=== PATIENT | male | born 1955 | race Caucasian/White ===

== ENCOUNTER → 2021-06-09 08:43 | Outpatient (CLI) | payer SELFPAY ==
[2013-12-02 15:54] VITALS: BMI 27.5
[2021-06-09 10:50] LABS: Anion Gap 9 (5-15); BUN 15 mg/dL (7-18); BUN/Creat Ratio 13.9 RATIO (10-20); Calcium,Total 9.3 mg/dL (8.5-10.1); Chloride 99 mmol/L (98-107); Cholesterol 221 mg/dL (200); Creatinine, Serum 1.08 mg/dL (0.70-1.30); EST Glomerular Filtration Rate 73 mL/min (>60); Est Glom Filt Rate - Afr Amer 89 mL/min (>60); Glucose 161 mg/dL (74-106); High Density Lipoprotein 48 mg/dL; PSA,Total - Annual Screen 0.85 ng/mL (0.00-4.00); Sodium Level 135 mmol/L (136-145); Triglycerides 71 mg/dL; Very Low Density Lipoprotein 14 mg/dL (5-40)
== END ==
PROVIDERS: PCP Family Medicine; Referring Provider Family Medicine; Visit Provider Family Medicine
DX: Z00.00 Encounter for general adult medical examination without abnormal findings (principal)
CPT/HCPCS: 36415; 80048; 80061; 84153; G0103

== ENCOUNTER 2024-10-19 03:09 | Emergency (ER) | payer SELFPAY ==
[2024-10-19] VITALS (10 sets, daily range): BP systolic 145–184; BP diastolic 83–100; PULSE 115–124; RESP 18–24; TEMP 36.7–37.2; O2SAT 91–98; BMI 26.5
--- NOTE | 2024-10-19 03:22 | ED.RN ---
Pt blood glucose checked by this RN, glucose monitor read high. Dr. Quesada made aware.
--- NOTE | 2024-10-19 03:50 | RAD_ITS ---
INDICATION: cough EXAMINATION/TECHNIQUE: X-RAY - XR Chest 1 View AP portable. 3:49 AM COMPARISON: Prior study dated: 12/05/2013 FINDINGS: LINES/DEVICES: None. LUNGS: No consolidation. No pneumothorax. MEDIASTINUM: Unremarkable. CARDIAC SILHOUETTE: Not enlarged. BONES AND SOFT TISSUES: No acute abnormalities. Right lower rib fracture appears nonacute. RAD/Chest 1 View (Portable) IMPRESSION: No evidence of active intrathoracic disease. Electronically Signed: Tiffanie Bruno MD at 5:10 EST ,
[2024-10-19 03:59] LABS: Hematocrit 37.1 % (40-54); Hemoglobin 13.1 g/dL (13.0-16.5); Mean Corp Hgb Conc 35.3 g/dL (32-36); Mean Corpuscular Hgb 30.3 pg (27.0-32.0); Mean Corpuscular Volume 85.9 fL (80-94); POSITIVE COUNT YES; POSITIVE DIFFERENTIAL YES; POSITIVE MORPHOLOGY YES; Platelet Count 206 K/mm3 (150-450); RBC Distribution Width CV 11.3 % (11.6-14.6); RBC Distribution Width SD 35.3 fl (35.1-43.9); Red Blood Count 4.32 M/mm3 (4.6-6.2); White Blood Count 19.2 K/mm3 (4.4-11.0)
--- NOTE | 2024-10-19 04:01 | EX.ED.DYSGE1 ---
HPI History of Present Illness Chief Complaint: General Illness Informant: patient and family Narrative Narrative: Patient is a 69-year-old male with history of hypertension and diabetes however states he does not take medications. He reports he has been feeling fatigued and weak for the last 3 days. Son states that he was talking to him this evening and he felt like his speech was slurred which concerned him and therefore he was brought in for evaluation. The patient states that despite not taking his medications he does watch his sugars and his normal value was approximately 140. He denies any fevers chills cough congestion abdominal pain nausea vomiting or diarrhea. He does state that his left chest wall hurts but feels this is related to physical activity he was doing a few days ago. PFSH PFSH Medical History no medical history Home Medications ?Medication ?Instructions ?Recorded ?Last Taken ?Type lisinopril 20 mg tablet 20 mg PO DAILY ##90 12/05/13 Unknown Rx metformin 500 mg tablet 500 mg PO BIDCM #90 tabs 12/05/13 Unknown Rx Allergy/AdvReac Type Severity Reaction Status Date / Time No Known Allergies Allergy Verified 10/19/24 03:10 Family History no significant family his Surgical History no surgical history Social History Smoking Status: Never smoker ROS ROS ED Constitutional Constitutional ED: Denies chills or fever(s) Eyes Eyes: Denies blurry vision or change in vision ENT ENT ED: Denies sore throat Cardiovascular Cardiovascular: Reports racing heartbeat; Denies chest pain or palpitations Respiratory/Chest Respiratory/Chest: Denies cough or dyspnea Gastrointestinal Gastrointestinal: Denies abdominal pain, diarrhea, nausea or vomiting Genitourinary Genitourinary ED: Denies dysuria or hematuria Musculoskeletal Musculoskeletal: Reports other Details: Positive left chest wall pain Integumentary Reports other Details: Positive redness left chest wall ; Denies rash Neurologic Neurologic: Denies headache(s) Hematologic/Lymphatic Hematologic/Lymphatic: Denies easy bleeding or easy bruising EXAM Physical Exam Const Vital Signs: 10/19/24 03:10 10/19/24 03:19 10/19/24 04:15 Temperature 98.3 F 98.3 F Temperature Source Oral Oral Pulse Rate 120 H 121 H Respiratory Rate 18 18 Respiratory Effort Normal Respiratory Pattern Normal Blood Pressure 145/83 H 145/83 H Blood Pressure Mean 103 103 Pulse Ox 97 95 Oxygen Delivery Method Room Air Room Air 10/19/24 04:19 10/19/24 05:00 10/19/24 05:09 Temperature 98.3 F 98.1 F Temperature Source Oral Oral Pulse Rate 118 H 120 H 117 H Respiratory Rate 20 H 22 H 18 Respiratory Effort Respiratory Pattern Blood Pressure 167/93 H 184/92 H 165/83 H Blood Pressure Mean 117 122 110 Pulse Ox 95 95 92 Oxygen Delivery Method Room Air Room Air Room Air 10/19/24 06:00 10/19/24 06:21 Temperature 98.3 F 98.2 F Temperature Source Oral Pulse Rate 117 H 115 H Respiratory Rate 18 21 H Respiratory Effort Respiratory Pattern Blood Pressure 184/92 H 151/86 H Blood Pressure Mean 122 107 Pulse Ox 95 98 Oxygen Delivery Method Room Air Positive well nourished and well developed General Appearance ED: well developed HEENT Reports dry mucous membranes HEENT Narrative: Mucous membranes are dry and tacky There are changes to the buccal mucosa and posterior pharynx consistent with thrush No airway edema or compromise Mouth ED: Yes dry mucous membranes Mouth: dry mucous membranes Eyes PERRL and EOMs intact bilaterally Neck supple Neck Narrative: No nuchal rigidity or meningeal signs Chest Wall Chest Narrative: Patient has soft tissue swelling with erythema faint warmth and fluctuance of the left anterior chest wall No lymphangitic streaking No crepitance palpated Resp normal respiratory effort and clear to auscultation bilaterally Cardio regular rhythm Rate: tachycardic GI normal to inspection, nondistended, normoactive bowel sounds, non-tender, non-distended and no masses Auscultation: normoactive bowel sounds Palpation: soft Extremity normal to inspection Neuro oriented x3, CN's II-XII intact bilaterally and no sensory deficits noted Neuro Narrative: GCS of 15 Cranial nerves II through XII are grossly intact there are no focal neurologic deficits No pronator drift no dysmetria no truncal ataxia NIH stroke scale score of 0 Sensorium / Orientation: alert Motor Exam: strength 5/5 throughout Psych mental status grossly normal Skin Skin Narrative: Skin turgor is increased Soft tissue changes to the left anterior chest as documented above MDM MDM MDM Narrative Medical decision making narrative: Patient presented to the ER tachycardic and hypertensive but otherwise afebrile. Some reported slurred speech but on exam he does not have any dysarthria and a stroke scale score is 0. However as he is a diabetic and states he does not take any medication and does have discoloration across his chest wall there is concern for potential infection causing his sensation of generalized weakness. He also has physical exam findings consistent with dehydration and there is concern for acute kidney injury or severe electrolyte abnormality. Secondary to this basic lab work was obtained. Patient's white count is elevated at 19.2 with 6 bands and elevated neutrophils consistent with infection. The urine sample does show changes consistent with infection so it was sent for culture and Rocephin was started. With the patient's leukocytosis left shift and tachycardia he is triggering sepsis so he was given 2 L of fluid. Blood sugar is greatly elevated at 888 and his serum osmolality is increased at 320. Patient's blood gas on VBG is 7.43 his anion gap is beginning to elevate and his CO2 is decreasing concerning for developing diabetic ketoacidosis. He also has acute kidney injury with his creatinine at 1.7 and this correlates with his dehydration status. Chest x-ray did not reveal pneumonia as a source of infection. With the patient having swelling and redness of the chest wall a CT of the chest abdomen pelvis was obtained. This revealed findings of osteomyelitis with potential abscess formation. I discussed the case with orthopedic surgery who feels that this is not in their realm and may require further evaluation by CT surgery. We do not have that specialty available at our hospital and with his elevated blood sugar and and secondary infection he may also need infectious disease and even potential urology based on the radiologist interpretation of his prostate. Therefore it was recommended he be transferred. [facility] was contacted. I discussed the case with their chief clinical officer Dr. Mcrae. He feels that as the patient's vitals are stable we may be able to provide insulin in a subcu manner and not have to admit to the ICU. He recommends transfer from ER to ER so they can reevaluate him after the treatment provided at our facility and discussed where he should be placed. Therefore the case was discussed with the ER physician at [facility] Dr. Fair who agrees to accept the patient in transfer. This plan of care was discussed with the patient and she is agreeable to it History & Record Review Discussion w/independent historian: Patient and Family Lab Data Attestation: I reviewed the patient's lab results. Labs: Laboratory Results - last 24 hr 10/19/24 10/19/24 10/19/24 03:16 03:25 04:06 WBC 19.2 H RBC 4.32 L Hgb 13.1 Hct 37.1 L MCV 85.9 MCH 30.3 MCHC 35.3 RDW Std Deviation 35.3 RDW Coeff of Roshan 11.3 L Plt Count 206 MPV 10.0 Neut % (Auto) Not Reportable Absolute Neuts (auto) 15.5 H Absolute Lymphs (auto) 0.00 L Total Counted 100 Neutrophils % (Manual) 81 H Band Neutrophils % 6 H Monocytes % (Manual) 9 Metamyelocytes % 2 H Myelocytes % 2 H Diff Path Review May foll Platelet Estimate ADEQUATE RBC Morphology NORM C+C Sodium 119 L* Potassium 5.6 H Chloride 85 L Carbon Dioxide 22.0 Anion Gap 13 BUN 78 H Creatinine 1.71 H Estim Creat Clear Calc 44.65 Est GFR (MDRD) Af Amer 52 L Est GFR (MDRD) Non-Af 43 L BUN/Creatinine Ratio 45.6 H Glucose 888 H* Serum Osmolality 320 H Lactic Acid Calcium 8.3 L Phosphorus Magnesium 2.5 Total Bilirubin 0.90 Direct Bilirubin 0.43 H AST 34 ALT 35 Alkaline Phosphatase 293 H Total Protein 6.6 Albumin 2.1 L Globulin 4.5 H Lipase 33 TSH Urine Color Yellow Urine Clarity Clear Urine pH 6.0 Ur Specific [place] 1.010 Urine Protein 15 H Urine Glucose (UA) 1000 H Urine Ketones 15 H Urine Occult Blood 50 H Urine Nitrite Positive H Urine Bilirubin Negative Urine Urobilinogen Normal Ur Leukocyte Esterase 500 H Urine RBC 0-5 SEEN Urine WBC 25-50 SEEN Ur Squamous Epith Cells 0 SEEN Urine Bacteria 1+ Urine Mucus 0 SEEN Urine Opiates Screen NEGATIVE Urine Methadone Screen NEGATIVE Ur Barbiturates Screen NEGATIVE Ur Phencyclidine Scrn NEGATIVE Ur Amphetamines Screen NEGATIVE MDMA (Ecstasy) Screen NEGATIVE U Benzodiazepines Scrn NEGATIVE Urine Cocaine Screen NEGATIVE U Cannabinoids Screen NEGATIVE Ur Drug Screen Comment Ethyl Alcohol Acetone Level SMALL H POC Glucose > 500 H* 10/19/24 10/19/24 10/19/24 05:21 05:43 06:20 WBC RBC Hgb Hct MCV MCH MCHC RDW Std Deviation RDW Coeff of Roshan Plt Count MPV Neut % (Auto) Absolute Neuts (auto) Absolute Lymphs (auto) Total Counted Neutrophils % (Manual) Band Neutrophils % Monocytes % (Manual) Metamyelocytes % Myelocytes % Diff Path Review Platelet Estimate RBC Morphology Sodium Potassium Chloride Carbon Dioxide Anion Gap BUN Creatinine Estim Creat Clear Calc Est GFR (MDRD) Af Amer Est GFR (MDRD) Non-Af BUN/Creatinine Ratio Glucose Serum Osmolality Lactic Acid 2.4 H* Calcium Phosphorus Magnesium Total Bilirubin Direct Bilirubin AST ALT Alkaline Phosphatase Total Protein Albumin Globulin Lipase TSH Urine Color Urine Clarity Urine pH Ur Specific [place] Urine Protein Urine Glucose (UA) Urine Ketones Urine Occult Blood Urine Nitrite Urine Bilirubin Urine Urobilinogen Ur Leukocyte Esterase Urine RBC Urine WBC Ur Squamous Epith Cells Urine Bacteria Urine Mucus Urine Opiates Screen Urine Methadone Screen Ur Barbiturates Screen Ur Phencyclidine Scrn Ur Amphetamines Screen MDMA (Ecstasy) Screen U Benzodiazepines Scrn Urine Cocaine Screen U Cannabinoids Screen Ur Drug Screen Comment Ethyl Alcohol < 3.0 Acetone Level POC Glucose > 500 H* 10/19/24 06:24 WBC RBC Hgb Hct MCV MCH MCHC RDW Std Deviation RDW Coeff of Roshan Plt Count MPV Neut % (Auto) Absolute Neuts (auto) Absolute Lymphs (auto) Total Counted Neutrophils % (Manual) Band Neutrophils % Monocytes % (Manual) Metamyelocytes % Myelocytes % Diff Path Review Platelet Estimate RBC Morphology Sodium 124 L Potassium 5.4 H Chloride 91 L Carbon Dioxide 21.0 Anion Gap 12 BUN 77 H Creatinine 1.76 H Estim Creat Clear Calc 43.38 Est GFR (MDRD) Af Amer 50 L Est GFR (MDRD) Non-Af 41 L BUN/Creatinine Ratio 43.8 H Glucose 765 H* Serum Osmolality Lactic Acid Calcium 7.7 L Phosphorus 3.3 Magnesium Total Bilirubin Direct Bilirubin AST ALT Alkaline Phosphatase Total Protein Albumin Globulin Lipase TSH 0.384 Urine Color Urine Clarity Urine pH Ur Specific [place] Urine Protein Urine Glucose (UA) Urine Ketones Urine Occult Blood Urine Nitrite Urine Bilirubin Urine Urobilinogen Ur Leukocyte Esterase Urine RBC Urine WBC Ur Squamous Epith Cells Urine Bacteria Urine Mucus Urine Opiates Screen Urine Methadone Screen Ur Barbiturates Screen Ur Phencyclidine Scrn Ur Amphetamines Screen MDMA (Ecstasy) Screen U Benzodiazepines Scrn Urine Cocaine Screen U Cannabinoids Screen Ur Drug Screen Comment Ethyl Alcohol Acetone Level POC Glucose ABG Data ABG results: ABG 10/19/24 03:54 Specimen Type CASIMIRO Sample Site Not entered VBG pH 7.44 H VBG pO2 50 H VBG HCO3 20 L VBG Total CO2 21 L VBG O2 Sat (Calc) 87 H VBG Base Excess -4 L POC Mix VBG pCO2 Pt Tmp 29.5 L O2 Delivery Device Not entered Radiography Diagnostic Testing: Clinical Impression(s) from Imaging Studies Chest X-Ray 10/19/24 03:50 IMPRESSION: No evidence of active intrathoracic disease. Electronically Signed: Tiffanie Bruno MD at 5:10 EST , Chest/Abdomen/Pelvis CT 10/19/24 04:40 IMPRESSION: 1. Findings at the left medial clavicle/sternoclavicular joint highly suspicious for necrotizing infection with osteomyelitis and/or septic joint with associated collection deep to the joint to the superior mediastinum and extending to the anterior chest wall. 2. Mediastinal adenopathy likely reactive. 3. Enlarged heterogeneous prostate with areas of decreased attenuation. Correlate for prostatitis and/or abscess. 4. Bilateral perinephric stranding likely chronic, difficult to exclude acute process such as bilateral pyelonephritis. Electronically Signed: Tiffanie Bruno MD at 6:43 EST , ADDENDUM: 10/19/24 0700 IMPRESSION: 1. Findings at the left medial clavicle/sternoclavicular joint highly suspicious for necrotizing infection with osteomyelitis and/or septic joint with associated collection deep to the joint to the superior mediastinum and extending to the anterior chest wall. 2. Mediastinal adenopathy likely reactive. 3. Enlarged heterogeneous prostate with areas of decreased attenuation. Correlate for prostatitis and/or abscess. 4. Bilateral perinephric stranding likely chronic, difficult to exclude acute process such as bilateral pyelonephritis. N.B. : The above Results were Read Back by Tiffanie Bruno MD to Rhett Quesada DO, and understanding confirmed on 10/19/2024 06:53:13 (ET). Electronically Signed: Tiffanie Bruno MD at 6:43 EST , Chest x-ray as interpreted by the emergency medicine physician reveals no acute infiltrate pneumothorax or pleural effusion Critical Care Time Critical Care Time: Yes Critical care time (excluding procedures): Discussing w/Patient &/or Family/Electrical Continuity Inspector, Discussing w/Consultants, Arranging Admission or Transfer and - (Critical care time of 43 minutes) Discharge Plan Triage Chief Complaint: General Illness ED Provider: Rhett Quesada Dx/Rx/DC Orders Clinical Impression: DKA (diabetic ketoacidoses), Osteomyelitis, Pseudohyponatremia, Sepsis, Acute renal failure, Uncontrolled hypertension Primary Care Provider: Sachin Miles Disposition Disposition: Acute Care Hospital Discharge Location: [facility]
[2024-10-19 04:02] LABS: Blood Gas Specimen Type VEN; O2 Delivery Device Not entered; SITE Not entered; VBG BASE EXCESS -4 mmol/L (-1.0-3.5); VBG Bicarbonate 20 mmol/L (22-26); VBG PO2 50 mmHg (25-40); VBG SO2 87 % (50-70); VBG TCO2 21 mmol/L (23-33); VBG pCO2 29.5 mmHg (41-51); VBG pH 7.44 (7.32-7.42)
[2024-10-19] MEDS: 0.9% Normal Saline (1000mL) 1,000 ML 999 ML IV ×3 (04:12→07:40)
[2024-10-19 04:15] LABS: Mucous, Urine 0 SEEN /hpf (<or=2+); Squamous Epithelial Cells - UA 0 SEEN /hpf (0-5)
[2024-10-19 04:17] LABS: Color, Urine Yellow (Yellow); Glucose, Dipstick 1000 mg/dl (Normal); Ketone-Dipstick 15 mg/dl (Negative); Leukocyte Esterase-Dipstick 500 /ul (Negative); Nitrite-Dipstick Positive (Negative); Occult Blood-Urine 50 /ul (Negative); Protein-Dipstick 15 mg/dl (Negative); Urine Bilirubin Dipstick Negative (Negative); Urine Clarity Clear (Clear); Urine Urobilinogen Normal (Normal)
[2024-10-19 04:20] LABS: AST(SGOT) 34 U/L (15-37); Alanine Aminotransfer ALT/SGPT 35 U/L (16-61); Albumin, Serum 2.1 g/dL (3.2-5.0); Alkaline Phosphatase 293 U/L (45-117); Anion Gap 13 (5-15); BUN 78 mg/dL (7-18); BUN/Creat Ratio 45.6 RATIO (10-20); Bilirubin, Direct 0.43 mg/dL (0.00-0.30); Calcium,Total 8.3 mg/dL (8.5-10.1); Chloride 85 mmol/L (98-107); Creatinine, Serum 1.71 mg/dL (0.70-1.30); EST Glomerular Filtration Rate 43 mL/min (>60); Est Glom Filt Rate - Afr Amer 52 mL/min (>60); Estimated Creatinine Clearance 44.65 ml/min; Globulin 4.5 g/dL (2.2-4.2); Glucose 888 mg/dL (74-106); Lipase 33 U/L (13-75); Magnesium 2.5 mg/dL (1.6-2.6); Potassium 5.6 mmol/L (3.5-5.1); Protein, Total 6.6 g/dL (6.4-8.2); Sodium Level 119 mmol/L (136-145)
[2024-10-19 04:25] LABS: Differential Indicated MANUAL DIFF
[2024-10-19 04:28] LABS: Metamyelocyte 2 % (0-1); Neutrophil-Band 6 % (0-5); Neutrophil-Segmented 81 % (47-70); Total Cells Counted 100 (MANUAL DIFF)
[2024-10-19 04:29] LABS: Absolute Neutrophil Count 15.5 X10^3/uL (2.0-7.7); Monocyte 9 % (0-10); Myelocyte 2 % (0-0); Neutrophil # 15.52 X10^3/uL (2.7-7.7)
[2024-10-19 04:31] LABS: Platelet Estimate ADEQUATE (ADEQ); Red Cell Morphology NORM C+C NORMAL (NORM C&C)
[2024-10-19 04:36] LABS: Bedside Glucose > 500 mg/dL (74-106)
--- NOTE | 2024-10-19 04:40 | CT_ITS ---
We are attempting to reach an attending provider to discuss findings. An addendum with communication details will be sent when the communication is complete. STUDY: CT CHEST, ABDOMEN T PELVIS WITHOUT CONTRAST REASON FOR EXAM: Male, 69 years old. cough and abd pain RADIATION DOSAGE (If Supplied By Facility): CTDIvol = ( 17.46 ) mGy, DLP = ( 1573.39 ) mGycm TECHNIQUE: Transaxial imaging was performed without the administration of intravenous contrast material. The protocol utilizes one or more of the following dose reduction techniques: automated exposure control, adjustment of mA and/or kV according to patient size,and/or use of iterative reconstruction technique. COMPARISON: No relevant prior comparison study available FINDINGS: ---CHEST LUNGS: Dependent atelectasis in both lungs. No consolidation. LARGE AIRWAYS: Unremarkable. PLEURA: No pleural effusion. No pneumothorax. MEDIASTINUM: Mild stranding in the superior mediastinum adjacent to the collection at the left sternoclavicular joint. Mildly enlarged lymph nodes in the mediastinum. HEART: Not enlarged. CORONARY ARTERIES: Coronary artery calcifications are seen. AORTA/VESSELS: No aortic aneurysm. ESOPHAGUS: Unremarkable. BONES/SOFT TISSUES: Diffuse edema in the soft tissues about the medial left clavicle sternoclavicular junction, with small foci of air in the region. Localized collection containing fluid and small foci of air air deep to the sternoclavicular joint measures approximately 5 x 2 cm axial by 3.5 cm craniocaudal, and is contiguous with collection that extends medial and anterior to the clavicle. Extensive surrounding edema extends more laterally, and soft tissue thickening extends presternal to the upper sternum. There is cortical irregularity of the medial left clavicle and the adjacent lateral border of the sternum. Old healed right rib fracture. OTHER/LINES: None. ---ABDOMEN PELVIS LIVER: Fatty infiltration. GALLBLADDER AND BILIARY TREE: Grossly unremarkable. PANCREAS: Grossly unremarkable. SPLEEN: Grossly unremarkable. ADRENAL GLANDS: Grossly unremarkable. KIDNEYS AND URETERS: No calculi demonstrated. No hydronephrosis. Fullness of the renal collecting system bilaterally may be secondary to the degree of bladder distention. Bilateral perinephric stranding. Symmetric. PERITONEUM: No free air. No free fluid. BOWEL: No bowel obstruction. Moderate amount of stool throughout the colon. APPENDIX: Visualized and unremarkable. No evidence of acute appendicitis. VESSELS: Abdominal aorta is normal caliber. REPRODUCTIVE ORGANS: Prostate enlarged and heterogeneous with ill-defined areas of decreased attenuation on the right, approximately 3 x 2.7 cm, and a smaller area on the left. URINARY BLADDER: Moderately distended. Unremarkable. ABDOMINAL WALL: Unremarkable. BONES: No acute abnormalities. Bilateral pars defects at L4 with grade 1 spondylolisthesis L4-[address]/CT Chest, Abd, Pelvis WO Cont IMPRESSION: 1. Findings at the left medial clavicle/sternoclavicular joint highly suspicious for necrotizing infection with osteomyelitis and/or septic joint with associated collection deep to the joint to the superior mediastinum and extending to the anterior chest wall. 2. Mediastinal adenopathy likely reactive. 3. Enlarged heterogeneous prostate with areas of decreased attenuation. Correlate for prostatitis and/or abscess. 4. Bilateral perinephric stranding likely chronic, difficult to exclude acute process such as bilateral pyelonephritis. Electronically Signed: Tiffanie Bruno MD at 6:43 EST ,
[2024-10-19 04:49] LABS: Bacteria 1+ /hpf (None Seen); Red Blood Cells-Urine 0-5 SEEN /hpf (0-5); White Blood Cells 25-50 SEEN /hpf (0-5)
[2024-10-19 05:06] LABS: Amphetamine Urine VISTA NEGATIVE (<1000 ng/mL); Barbiturate Urine VISTA NEGATIVE (< 200 ng/mL); Benzodiazepine Urine VISTA NEGATIVE (< 200 ng/mL); Cocaine Urine VISTA NEGATIVE (< 300 ng/mL); Ecstacy Urine VISTA NEGATIVE (< 500 ng/mL); Methadone Urine VISTA NEGATIVE (< 300 ng/mL); PCP Urine VISTA NEGATIVE (< 25 ng/mL); THC Urine VISTA NEGATIVE (< 50 ng/mL); Vista UDS pH Range 5
[2024-10-19 05:43] LABS: Osmolality, Serum 320 mOsm/KG (280-301)
[2024-10-19] MEDS: Ceftriaxone 1 GM/50 ML BAG IV (05:44)
--- NOTE | 2024-10-19 05:44 | PCM.HP.STD ---
[facility] - General General Date of Admission: 10/19/24 Date of Service: 10/19/24 Chief Complaint: Right Arm Weakness and Elevated Blood Glucose. HPI Narrative VONDA REYNOSO, is a 69 M with a past medical history of essential hypertension; on lisinopril, history of hyperlipidemia; not on treatment, overweight; with BMI of 26.6 this admission, DM-2; of unknown control on metformin, history of severe bacterial pneumonia with simultaneous influenza causing respiratory insufficiency treated here (2013), OA and history of medical noncompliance who presents to [facility] ER complaining of shortness of breath and elevated blood glucose. Mr. Reynoso reports his symptoms began approximately 1 week prior to admission with a gradual onset of generalized weakness, fatigue and malaise. Patient has not been taking his metformin and he also has not been checking his blood sugars routinely but he has noted polyuria, polydipsia and persistently dry mouth. He admits to recent overexertion while trying to put a tarp on a semitrailer with subsequent Right arm soreness and weakness but he denies headache, slurred speech, paresthesias or other focal neurologic deficits. I spoke with the patient's son at the bedside and he explained that the patient is stubborn and does not follow-up with his doctors or take his medications as prescribed in spite of his family persistently encouraging him to do so. There was no report of fever, chills, vomiting, diarrhea, dysuria, hematuria, chest pain or shortness of breath. In the ER he was noted to have DKA; with critical hyperglycemia of 888 mg/dL present on admission with small serum acetone and pseudohyponatremia complicated by CT evidence of necrotizing infection with osteomyelitis and/or septic joint of the Left mid clavicle/sternoclavicular joint with associated collection deep to the joint to the superior mediastinum with associated reactive mediastinal adenopathy along with additional evidence of heterogenous prostate with areas of decreased attenuation suspicious for prostatitis and/or abscess and bilateral perinephric stranding likely chronic difficult to exclude acute process such as bilateral pyelonephritis in addition to laboratory evidence of Acute Cystitis; without hematuria and clinical signs of Sepsis: With leukocytosis of 19.2 K, lactic acidosis of 2.4 mmol/L and persistent tachycardia ~120 bpm in addition to evidence of ARF with elevated serum creatinine of 1.71 mg/dL with a BUN of 78 mg/dL (up from his baseline serum creatinine of 1.08 mg/dL and BUN at 15 mg/dL last admission) compounded by uncontrolled hypertension with elevated blood pressure of 184/92 mmHg noted shortly after admission along with recent Right upper extremity strain due to overexertion with patient initially written orders for ICU for stay that was expected to extend beyond 2 midnights but with his recent osteomyelitis evident on his CT which just resulted the ER physician and myself agree patient should transfer to tertiary care center given his intense medical complexity and severe multifaceted acute illness with much-needed cardiothoracic surgery and urology evaluation. PFSH Medical History no medical history Home Medications ?Medication ?Instructions ?Recorded ?Last Taken ?Type lisinopril 20 mg tablet 20 mg PO DAILY ##90 12/05/13 Unknown Rx metformin 500 mg tablet 500 mg PO BIDCM #90 tabs 12/05/13 Unknown Rx Allergy/AdvReac Type Severity Reaction Status Date / Time No Known Allergies Allergy Verified 10/19/24 03:10 Family History no significant family his Surgical History no surgical history Social History Smoking Status: Never smoker ROS ROS Narrative Review of Systems: Constitutional: Patient denies fever or chills. Eyes: Patient denies changes in vision or discharge from eyes. ENT: Patient denies runny nose, sore throat or ear pain. Resp: Patient denies shortness of breath or cough. CV: Patient admits to palpitations and a sensation heart racing but he denies chest pain. GI: Patient denies abdominal pain, nausea, vomiting, diarrhea or constipation. : Patient denies dysuria or hematuria. MSK: Patient admits to generalized weakness but he denies arthralgias. Skin: Patient denies rash, abscess or jaundice. Psych: Patient denies symptoms of uncontrolled depression or anxiety. Neuro: Patient admits to moderate Right arm weakness and pain after recently overexerting himself trying to put a tarp on a semitrailer but he denies headache, paresthesias or focal neurologic deficits. Allergy: Patient denies lip swelling, tongue swelling or urticaria. Hematology: Patient denies easy bleeding or easy bruisability. Endocrinology: Patient admits to polyuria and polydipsia but he denies polyphagia. 14 point review of systems otherwise negative other than positives noted above in HPI. Vital Signs Vital Signs Vital Signs: 10/19/24 03:10 10/19/24 03:19 10/19/24 04:15 Temperature 98.3 F 98.3 F Temperature Source Oral Oral Pulse Rate 120 H 121 H Respiratory Rate 18 18 Respiratory Effort Normal Respiratory Pattern Normal Blood Pressure 145/83 H 145/83 H Blood Pressure Mean 103 103 Pulse Ox 97 95 Oxygen Delivery Method Room Air Room Air 10/19/24 04:19 10/19/24 05:00 10/19/24 05:09 Temperature 98.3 F 98.1 F Temperature Source Oral Oral Pulse Rate 118 H 120 H 117 H Respiratory Rate 20 H 22 H 18 Respiratory Effort Respiratory Pattern Blood Pressure 167/93 H 184/92 H 165/83 H Blood Pressure Mean 117 122 110 Pulse Ox 95 95 92 Oxygen Delivery Method Room Air Room Air Room Air Weight Weight: 190 lb 7.67 oz Body Mass Index (BMI) 26.5 Physical Exam Const alert, oriented x3, no apparent distress and average body habitus Constitutional Narrative: Patient hard of hearing with flat affect and dry sense of humor. General Appearance: cooperative HEENT normocephalic, head/scalp atraumatic and hearing grossly normal bilaterally HEENT Narrative: Mucous membranes very dry. Eyes PERRL and EOMs intact bilaterally Neck no lymphadenopathy and supple Resp normal respiratory effort, no retractions, no use of accessory muscles and clear to auscultation bilaterally Cardio regular rate and regular rhythm Cardio Narrative: Persistent tachycardia ~120 bpm. GI normal to inspection, nondistended, normoactive bowel sounds, soft to palpation, non-tender, non-distended and hepatosplenomegaly Extremity Extremity Narrative: Patient has tenderness to palpation of his right upper extremity with evidence of soft tissue swelling over his Left clavicle and Left upper chest wall Skin Skin Narrative: Patient has evidence of erythema and edema around the Left clavicle and Left upper chest wall. Neuro oriented x3, CN's II-XII intact bilaterally, moves all extremities and no focal motor deficits Sensorium / Orientation: awake, alert, oriented to person, oriented to place and oriented to time Speech: speech normal Psych Psych Narrative: Patient has a flat affect with dry sense of humor. Results Medical Records Data Attestation: I reviewed the patient's medical records Lab / Micro Data Attestation: I reviewed the patient's lab results. 10/19/24 03:25 10/19/24 06:24 Labs: Laboratory Results - last 24 hr 10/19/24 03:16: POC Glucose > 500 H* 10/19/24 03:25: WBC 19.2 H, RBC 4.32 L, Hgb 13.1, Hct 37.1 L, MCV 85.9, MCH 30.3, MCHC 35.3, RDW Std Deviation 35.3, RDW Coeff of Roshan 11.3 L, Plt Count 206, MPV 10.0, Neut % (Auto) Not Reportable, Absolute Neuts (auto) 15.5 H, Absolute Lymphs (auto) 0.00 L, Total Counted 100, Neutrophils % (Manual) 81 H, Band Neutrophils % 6 H, Monocytes % (Manual) 9, Metamyelocytes % 2 H, Myelocytes % 2 H, Diff Path Review February, Platelet Estimate ADEQUATE, RBC Morphology NORM C+C, Sodium 119 L*, Potassium 5.6 H, Chloride 85 L, Carbon Dioxide 22.0, Anion Gap 13, BUN 78 H, Creatinine 1.71 H, Estim Creat Clear Calc 44.65, Est GFR (MDRD) Af Amer 52 L, Est GFR (MDRD) Non-Af 43 L, BUN/Creatinine Ratio 45.6 H, Glucose 888 H*, Serum Osmolality 320 H, Calcium 8.3 L, Magnesium 2.5, Total Bilirubin 0.90, Direct Bilirubin 0.43 H, AST 34, ALT 35, Alkaline Phosphatase 293 H, Total Protein 6.6, Albumin 2.1 L, Globulin 4.5 H, Lipase 33, Acetone Level SMALL H 10/19/24 04:06: Urine Color Yellow, Urine Clarity Clear, Urine pH 6.0, Ur Specific Wiggins 1.010, Urine Protein 15 H, Urine Glucose (UA) 1000 H, Urine Ketones 15 H, Urine Occult Blood 50 H, Urine Nitrite Positive H, Urine Bilirubin Negative, Urine Urobilinogen Normal, Ur Leukocyte Esterase 500 H, Urine RBC 0-5 SEEN, Urine WBC 25-50 SEEN, Ur Squamous Epith Cells 0 SEEN, Urine Bacteria 1+, Urine Mucus 0 SEEN, Urine Opiates Screen NEGATIVE, Urine Methadone Screen NEGATIVE, Ur Barbiturates Screen NEGATIVE, Ur Phencyclidine Scrn NEGATIVE, Ur Amphetamines Screen NEGATIVE, MDMA (Ecstasy) Screen NEGATIVE, U Benzodiazepines Scrn NEGATIVE, Urine Cocaine Screen NEGATIVE, U Cannabinoids Screen NEGATIVE, Ur Drug Screen Comment Micro: Microbiology 10/19/24 03:40 Mucosa - Nose SARS-CoV-2, Influenza & RSV (PCR) - Final ABG Data ABG results: ABG 10/19/24 03:54 Specimen Type CASIMIRO Sample Site Not entered VBG pH 7.44 H VBG pO2 50 H VBG HCO3 20 L VBG Total CO2 21 L VBG O2 Sat (Calc) 87 H VBG Base Excess -4 L POC Mix VBG pCO2 Pt Tmp 29.5 L O2 Delivery Device Not entered Imaging Radiology Impression Chest X-Ray 10/19/24 03:50 IMPRESSION: No evidence of active intrathoracic disease. Electronically Signed: Tiffanie Bruno MD at 5:10 EST , Assessment & Plan Assessment/Plan (1) DKA (diabetic ketoacidoses): QUALIFIERS: Diabetes mellitus complication detail: without coma Diabetes mellitus type: type 2 Qualified Code(s): E11.10 - Type 2 diabetes mellitus with ketoacidosis without coma (2) Pseudohyponatremia: (3) Osteomyelitis: QUALIFIERS: Osteomyelitis location: other site Osteomyelitis type: unspecified type Qualified Code(s): M86.9 - Osteomyelitis, unspecified (4) Prostatitis: QUALIFIERS: Prostatitis type: unspecified Qualified Code(s): N41.9 - Inflammatory disease of prostate, unspecified (5) Acute cystitis without hematuria: (6) Sepsis: QUALIFIERS: Acute renal failure type: unspecified Sepsis acute organ dysfunction status: with acute organ dysfunction Sepsis type: sepsis due to unspecified organism Severe sepsis acute organ dysfunction type: acute renal failure Severe sepsis shock status: without septic shock Qualified Code(s): A41.9 - Sepsis, unspecified organism; R65.20 - Severe sepsis without septic shock; N17.9 - Acute kidney failure, unspecified (7) Lactic acidosis: (8) Acute renal failure: QUALIFIERS: Acute renal failure type: unspecified Qualified Code(s): N17.9 - Acute kidney failure, unspecified (9) Hyperkalemia: (10) Uncontrolled hypertension: (11) Hyperlipidemia: QUALIFIERS: Hyperlipidemia type: unspecified Qualified Code(s): E78.5 - Hyperlipidemia, unspecified (12) Strain of right upper arm: QUALIFIERS: Encounter type: initial encounter Qualified Code(s): S46.911A - Strain of unspecified muscle, fascia and tendon at shoulder and upper arm level, right arm, initial encounter PLAN: Plan 1. DKA; evidenced by critical hyperglycemia of 888 mg/dL present on admission with small serum acetone and pseudohyponatremia of 119 mmol/L present on admission - Admit to ICU for treatment under the DKA protocol. Continue IV insulin begun in the ER and titrate as needed until DKA resolves. Aggressively volume resuscitate and replace electrolytes per ICU protocol. Keep strict n.p.o. and start Protonix 40 mg IV daily for GI prophylaxis. Check hemoglobin A1c to assess severity of his uncontrolled DM-2; with hyperglycemia in spite of metformin. Give Zofran IV as needed for nausea and vomiting. Give Phenergan IM for breakthrough nausea and vomiting. Give morphine IV as needed for severe (level 6-10/10) pain. Finally, we will consult clinical dietitian to see patient on-rounds in the a.m. to enhance diabetic teaching including the use of insulins with help appreciated in advance. 2. CT evidence of necrotizing infection with osteomyelitis and/or septic joint of the Left mid clavicle/sternoclavicular joint with associated collection deep to the joint to the superior mediastinum with associated reactive mediastinal adenopathy along with additional evidence of heterogenous prostate with areas of decreased attenuation suspicious for prostatitis and/or abscess and bilateral perinephric stranding likely chronic difficult to exclude acute process such as bilateral pyelonephritis in addition to laboratory evidence of Acute cystitis; without hematuria with leukocytosis of 19.2 K and Lactic Acidosis of 2.4 mmol/L with tachycardia of 120 bpm present on admission concerning for Sepsis likely triggering #1 - Stop IV Rocephin begun in the ER and start IV Vancomycin and IV Zosyn and await culture and sensitivity data. I personally spoke to ER physician about the CT findings and strongly recommended transfer to tertiary care center for urgent cardiothoracic surgery and urology evaluations with both of us in agreement patient should be immediately transferred to tertiary care center for definitive treatment of his multiple complex medical issues. 3. ARF; with elevated serum creatinine of 1.71 mg/dL, BUN of 78 mg/dL and Hyperkalemia of 5.6 mmol/L present on admission complicating #1 & #2 with suspected adverse Drug Reaction to lisinopril - Vigorously volume resuscitate and recheck renal indices in a.m. to ensure improvement. Avoid potentially nephrotoxic agents. 4. Uncontrolled Hypertension with elevated blood pressure of 184/92 mmHg noted shortly after admission adding to the medical complexity of #1 - 3 - Give IV Hydralazine prn for systolic blood pressure > 160 mmHg. 5. Acute Myofascial Strain of the RUE after recent overexertion due to patient trying to place a tarp on a semi adding to the burden of disease outlined from #1 - #4 - PT/OT and Case Management to consult and treat on-rounds in the AM for further recommendations. 6. Overweight; with BMI of 26.6 this admission - Weight loss will be recommended. Check TSH. 6. History of Hyperlipidemia; not currently on treatment - Check lipid profile this admission. 7. History of severe bacterial pneumonia with simultaneous influenza causing respiratory insufficiency treated here (2013) - Noted. 8. DVT/GI prophylaxis - Give Heparin 5,000 units subcu 2 times daily plus SCDs. Protonix 40 mg IV daily. Total time: Approximately (but not less than) 75 minutes. Sepsis Attestation Sepsis Alert: Yes Sepsis Attestation: Agree w/Sepsis Date exam was performed: 10/19/24 Time exam was performed: 06:15 Possible Source of Sepsis: Genitourinary Sepsis Organ Dysfunction Criteria Present: Lactic Acid > 2 mmol/L Supportive Findings: Patient is leukocytosis of 19.2 K, lactic acidosis of 2.4 mmol/L and persistent sinus tachycardia of ~120 bpm with UA positive for acute cystitis; without hematuria. Fluid Resuscitation Fluid resuscitation indicated?: Yes Fluid Resuscitation ordered: 30 ml/kg fluid bolus ordered Amount of fluid ordered: 2 Sepsis Note Date exam was performed: 10/19/24 Time exam was performed: 07:00 Sepsis Attestation: Sepsis re-evaluation was performed Response to fluids: Fluid responsive hypotension Charges/Coding Visit Charges Inpatient E&M: 00700 Init Hosp L3
[2024-10-19 06:02] LABS: Lactic Acid 2.4 mmol/L (0.4-1.9)
[2024-10-19 06:41] LABS: Alcohol, Blood (Medical)-Serum < 3.0 mg/dL
[2024-10-19 06:43] LABS: Bedside Glucose > 500 mg/dL (74-106)
[2024-10-19] MEDS: Insulin Lispro 100 UNIT in 0.9% Normal Saline (100mL Bag) 99 ML 8.6 UNIT CONT INF (06:47)
[2024-10-19 07:16] LABS: Anion Gap 12 (5-15); BUN 77 mg/dL (7-18); BUN/Creat Ratio 43.8 RATIO (10-20); Calcium,Total 7.7 mg/dL (8.5-10.1); Chloride 91 mmol/L (98-107); Creatinine, Serum 1.76 mg/dL (0.70-1.30); EST Glomerular Filtration Rate 41 mL/min (>60); Est Glom Filt Rate - Afr Amer 50 mL/min (>60); Estimated Creatinine Clearance 43.38 ml/min; Glucose 765 mg/dL (74-106); Potassium 5.4 mmol/L (3.5-5.1); Sodium Level 124 mmol/L (136-145)
[2024-10-19 07:40] LABS: Phosphorus 3.3 mg/dL (2.5-4.9)
[2024-10-19] MEDS: Piperacil/Tazobactam 3.375 GM in 0.9% Normal Saline (50mL MB+) 50 ML IV (07:40)
[2024-10-19 07:47] LABS: Thyroid Stim Hormone (TSH) 0.384 uIU/mL (0.358-3.740)
[2024-10-19 08:11] LABS: Hemoglobin A1c 13.5 % (3.8-5.6)
[2024-10-19] MEDS: 0.9% Normal Saline (1000mL) 1,000 ML 500 ML IV (08:15)
[2024-10-19] MEDS: Vancomycin HCl 1,250 MG in 0.9% Normal Saline (250mL Bag) 250 ML 167 MG IV (08:18)
[2024-10-19 08:34] LABS: Bedside Glucose > 500 mg/dL (74-106)
[2024-10-19 09:35] LABS: Reflex Lactate? Y
[2024-10-19 09:44] LABS: Bedside Glucose > 500 mg/dL (74-106)
[2024-10-19 10:32] LABS: Bedside Glucose > 500 mg/dL (74-106)
[2024-10-19 10:38] LABS: Lactic Acid 2.6 mmol/L (0.4-1.9)
--- NOTE | 2024-10-19 10:43 | ED.RN ---
this Rn gave report to [facility]
[2024-10-21 15:30] LABS: Pathologist Review Reviewed
== END 2024-10-19 10:43 | disposition short-term general hospital (02) ==
LOC: ED 06:43 → ICU 07:00
PROVIDERS: Emergency Medicine; Internal Medicine; Emergency Provider Family Medicine; PCP Family Medicine; Visit Provider Family Medicine
DX: A41.9 Sepsis, unspecified organism (principal); R65.20 Severe sepsis without septic shock; M86.9 Osteomyelitis, unspecified; E11.10 Type 2 diabetes mellitus with ketoacidosis without coma; E11.65 Type 2 diabetes mellitus with hyperglycemia; E11.69 Type 2 diabetes mellitus with other specified complication; E87.1 Hypo-osmolality and hyponatremia; E86.0 Dehydration; E87.5 Hyperkalemia; N41.9 Inflammatory disease of prostate, unspecified; N30.00 Acute cystitis without hematuria; N17.9 Acute kidney failure, unspecified; S46.911A Strain of unspecified muscle, fascia and tendon at shoulder and upper arm level, right arm, initial encounter; X50.9XXA Other and unspecified overexertion or strenuous movements or postures, initial encounter; I10 Essential (primary) hypertension; E66.3 Overweight; Z68.26 Body mass index [BMI] 26.0-26.9, adult; Z79.84 Long term (current) use of oral hypoglycemic drugs; Z79.899 Other long term (current) drug therapy; Z91.199 Patient's noncompliance with other medical treatment and regimen due to unspecified reason; Z91.148 Patient's other noncompliance with medication regimen for other reason; Z87.01 Personal history of pneumonia (recurrent); Z86.19 Personal history of other infectious and parasitic diseases
CPT/HCPCS: 71045; 71250; 74176; 80048; 80076; 80307; 81001; 82009; 82077; 82803; 82962; 83036; 83605; 83690; 83735; 83930; 84100; 84443; 85025; 87040; 87077; 87086; 87088; 87149; 87186; 87631; 96361; 96365; 96366; 96367; 96368; 99285; A4216